=== PATIENT | female | born 1930 | race Caucasian/White ===

== ENCOUNTER 2016-08-12 20:27 | Emergency (ER) | payer MEDICARE ==
[~2016-08-12] VITALS: Ht 152.4 cm; Wt 49.9 kg
--- NOTE | 2016-08-12 22:10 | ED General ---
General Chief Complaint: Skin/Wound Problems Stated Complaint: FLU SYMPTOMS Nursing Triage Note: FROM HOME PER EMS. PT C/O PAIN TO BUTTOCKS. UPON ARRIVAL PT IS INCONTINENT OF STOOL, BUTTOCKS RED, MACERATED. DENIES N/V. Nursing Sepsis Screen: No Definite Risk Source of Information: Patient Exam Limitations: No Limitations History of Present Illness Time Seen by Provider: 21:56 Initial Comments here by EMS with report of pain to the area of the buttocks. Patient had stool covering skin on arrival. This was cleaned up by nursing. She is improved with respect to pain afterwards. 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 Patient is on only aspirin and otherwise no significant medications. Does have history of blood clot which apparently resulted in the amputation. Patient does report the right leg has some pain and she knows she needs to exercise it. There is swelling and redness of the leg noted in reported. The son was also report reporting that the patient has had cough and he has recently had a bout of pneumonia and was worried about that with her. She has no local physician. She has no physician at all currently. Timing/Duration: 1-3 Hours (pain to buttocks), 3-4 Days (cough) Severity: Moderate Associated Systoms: No Chest Pain, Cough, No Fever/Chills, No Nausea/Vomiting, No Shortness of Air, No Weakness Allergies and Home Medications Allergies Coded Allergies: No Known Drug Allergies (Unverified , 08/12/16) Home Medications Cephalexin 500 Mg Tablet, 500 MG PO TID, #21 Ref 0 Prescribed by: REBECA HUTCHINS on 08/13/16 0133 Menthol/Zinc Oxide 3.5 Gm Oint.pack, 3.5 GM TP TID, #50 Ref 1 Prescribed by: REBECA HUTCHINS on 08/13/16 0133 Constitutional: see HPI, No chills, No fever EENTM: no symptoms reported Respiratory: see HPI, cough, No short of breath Cardiovascular: No chest pain, edema Gastrointestinal: no symptoms reported, No nausea, No vomiting Genitourinary: no symptoms reported, No dysuria, No pain Musculoskeletal: No back pain, muscle pain Skin: change in color, lesions Psychiatric/Neurological: No Symptoms Reported Hematologic/Lymphatic: No Symptoms Reported All Other Systems Reviewed Negative Unless Noted: Yes Past Vmuhaaq-Incazx-Oncrvc Hx Patient Social History Alcohol Use: Denies Use Recreational Drug Use: No Smoking Status: Never a Smoker Recent Foreign Travel: No Contact w/Someone Who Travel: No Recent Infectious Disease Expo: No Recent Hopitalizations: No Seasonal Allergies Seasonal Allergies: No Surgeries HX Surgeries: Yes (LEFT AKA) Respiratory Hx Respiratory Disorders: No Cardiovascular Hx Cardiac Disorders: Yes Cardiac Disorders: Peripheral Vascular Neurological Hx Neurological Disorders: No Reproductive System Hx Reproductive Disorders: No Sexually Transmitted Disease: No Genitourinary Hx Genitourinary Disorders: No Gastrointestinal Hx Gastrointestinal Disorders: No Musculoskeletal Musculoskeletal Disorders: Amputee Endocrine Hx Endocrine Disorders: No HEENT HX ENT Disorders: No Cancer Hx Cancer: No Psychosocial Hx Psychiatric Problems: No Integumentary HX Skin/Integumentary Disorder: No Blood Transfusions Adverse Reaction to a Blood Tr: No Reviewed Nursing Assessment Reviewed/Agree w Nursing PMH: Yes Family Medical History Significant Family History: No Pertinent Family Hx Physical Exam-Suspected Sepsis Physical Exam Vital Signs Vital Sign - Last 12Hours 08/12/16 20:40 Temp 99.0 Pulse 73 Resp 19 B/P (MAP) 136/86 Pulse Ox 96 Capillary Refill : Less Than 3 Seconds Blood Pressure Mean: 103 General Appearance: No Apparent Distress, WD/WN HEENT: PERRL/EOMI, Pharynx Normal Neck: Non Tender, Supple Respiratory: No Respiratory Distress, Crackles (mild at bases bilaterally) Cardiovascular: Regular Rate, Rhythm, No Murmur Gastrointestinal: Non Tender, Soft Back: Normal Inspection, No CVA Tenderness, No Vertebral Tenderness Extremity: Calf Tenderness, Pedal Edema (right lower extremity2+), Other (left [id number] amputation) Neurologic/Psychiatric: Alert, Oriented x3 Skin: ulcerations (stage I/to skin breakdown to the skin folds along the posterior gluteal folds at the legs bilaterally with erythema over the buttocks. ), other (erythema to the right lower extremity above the ankle to the level of the mid tibia anteriorly that is warm and edematous.) Focused Exam Lactic Acid Level Laboratory Tests Test 08/12/16 22:20 Lactic Acid Level 1.24 MMOL/L (0.50-2.00) Progress/Results/Core Measures Suspected Sepsis Recent Fever Within 48 Hours: Yes Infection Criteria Present: Suspected New Infection New/Unexplained Altered Menta: No Sepsis Screen: No Definite Risk Sepsis Diagnosis: SIRS Temperature:99.0 Pulse: 73 Respiratory Rate: 19 Laboratory Tests 08/12/16 22:20: White Blood Count 7.9 Blood Pressure 136 /86 Mean: 103 Laboratory Tests 08/12/16 22:20: Creatinine 0.87, INR Comment 1.0, Platelet Count 447H, Total Bilirubin 0.3 Results/Orders Lab Results Laboratory Tests Test 08/12/16 22:20 08/12/16 23:45 Range/Units White Blood Count 7.9 4.3-11.0 10^3/uL Red Blood Count 4.19 L 4.35-5.85 10^6/uL Hemoglobin 9.1 L 11.5-16.0 G/DL Hematocrit 30 L 35-52 % Mean Corpuscular Volume 71 L 80-99 FL Mean Corpuscular Hemoglobin 22 L 25-34 PG Mean Corpuscular Hemoglobin Concent 31 L 32-36 G/DL Red Cell Distribution Width 17.2 H 10.0-14.5 % Platelet Count 447 H 130-400 10^3/uL Mean Platelet Volume 10.3 7.4-10.4 FL Neutrophils (%) (Auto) 83 H 42-75 % Lymphocytes (%) (Auto) 9 L 12-44 % Monocytes (%) (Auto) 7 0-12 % Eosinophils (%) (Auto) 0 0-10 % Basophils (%) (Auto) 1 0-10 % Neutrophils # (Auto) 6.6 1.8-7.8 X 10^3 Lymphocytes # (Auto) 0.7 L 1.0-4.0 X 10^3 Monocytes # (Auto) 0.6 0.0-1.0 X 10^3 Eosinophils # (Auto) 0.0 0.0-0.3 10^3/uL Basophils # (Auto) 0.0 0.0-0.1 10^3/uL Prothrombin Time 13.0 12.2-14.7 SEC INR Comment 1.0 0.8-1.4 Activated Partial Thromboplast Time 28 24-35 SEC Sodium Level 138 135-145 MMOL/L Potassium Level 4.4 3.6-5.0 MMOL/L Chloride Level 104 98-107 MMOL/L Carbon Dioxide Level 23 21-32 MMOL/L Anion Gap 11 5-14 MMOL/L Blood Urea Nitrogen 17 7-18 MG/DL Creatinine 0.87 0.60-1.30 MG/DL Estimat Glomerular Filtration Rate > 60 BUN/Creatinine Ratio 20 Glucose Level 119 H 70-105 MG/DL Lactic Acid Level 1.24 0.50-2.00 MMOL/L Calcium Level 9.1 8.5-10.1 MG/DL Total Bilirubin 0.3 0.1-1.0 MG/DL Aspartate Amino Transf (AST/SGOT) 11 5-34 U/L Alanine Aminotransferase (ALT/SGPT) 9 0-55 U/L Alkaline Phosphatase 75 40-136 U/L Total Protein 6.5 6.4-8.2 G/DL Albumin 3.4 3.2-4.5 G/DL Urine Color YELLOW Urine Clarity CLEAR Urine pH 5 5-9 Urine Specific [place] 1.020 1.016-1.022 Urine Protein NEGATIVE NEGATIVE Urine Glucose (UA) NEGATIVE NEGATIVE Urine Ketones NEGATIVE NEGATIVE Urine Nitrite NEGATIVE NEGATIVE Urine Bilirubin NEGATIVE NEGATIVE Urine Urobilinogen NORMAL NORMAL MG/DL Urine Leukocyte Esterase 1+ H NEGATIVE Urine RBC (Auto) 2+ H NEGATIVE Urine RBC 5-10 H /HPF Urine WBC 0-2 /HPF Urine Squamous Epithelial Cells 5-10 /HPF Urine Crystals NONE /LPF Urine Bacteria NEGATIVE /HPF Urine Casts NONE /LPF Urine Mucus NEGATIVE /LPF Urine Culture Indicated NO My Orders Orders - REBECA HUTCHINS MD Cbc With Automated Diff (08/12/16 22:06) Comprehensive Metabolic Panel (08/12/16 22:06) Lactic Acid Analyzer (08/12/16 22:06) Blood Culture (08/12/16 22:06) Sputum Culture (08/12/16 22:06) Ua Culture If Indicated (08/12/16 22:06) Protime With Inr (08/12/16 22:06) Partial Thromboplastin Time (08/12/16 22:06) Chest 1 View, Ap/Pa Only (08/12/16 22:06) O2 (08/12/16 22:06) Saline Lock/Iv-Start (08/12/16 22:06) Vital Signs Adult Sepsis Patie Q1HR (08/12/16 22:06) Remove Rings In Anticipation O (08/12/16 22:06) Us Venous Lower Ext Rt (08/12/16 22:33) Cephalexin Capsule (Keflex Capsule) (08/13/16 01:34) Vital Signs/I&O Vital Sign - Last 12Hours 08/12/16 08/12/16 20:40 22:38 Temp 99.0 99.0 Pulse 73 73 Resp 19 19 B/P (MAP) 136/86 136/86 Pulse Ox 96 96 Capillary Refill : Less Than 3 Seconds Blood Pressure Mean: 103 Progress Note : Progress Note seen and evaluated. IV, labs, chest x-ray, UA, blood cultures and lactic acid ordered. Ultrasound right lower extremity due to history of blood clot to the left lower extremity requiring amputation. Patient not on anticoagulants. Patient is mostly bedridden.0030: Ultrasound is negative. UA pending. Otherwise labs are negative at this point. 0100: UA is also negative for infection. We will get barrier cream in place to the buttocks. Patient will need follow-up with a local physician. They currently do not have a local physician and are seeking physician care. We talked about several different physicians and they are interested in Dr. Darryn Redding. I will give his information to the patient and family and send copy of chart to him in case they do call for follow-up. The son indicated he would call in the morning. Patient would benefit from home health due to wounds but will need primary care follow-up first. The son was very interested in assistance and so is the patient. Diagnostic Imaging Diagonstic Imaging: Xray Plain Films/CT/US/NM/MRI: chest Comments no acute findings Reviewed: Reviewed by Me Diagonstic Imaging: Ultrasound Plain Films/CT/US/NM/MRI: leg Comments no DVT per statrad read Reviewed: Reviewed Night [facility] Study Departure Impression Impression: Primary Impression: Skin ulcer of buttock, limited to breakdown of skin Disposition: 01 HOME, SELF-CARE Condition: Improved Departure-Patient Inst. Decision time for Depature: 01:25 Referrals: LYNN GARY MD (PCP/Family) Primary Care Physician DARRYN REDDING MD Patient Instructions: Wound Care (DC) Add. Discharge Instructions: All discharge instructions reviewed with patient and/or family. Voiced understanding. use skin barrier cream as directed. Take antibiotics as directed. Follow-up with a doctor of your choice or the one listed this week for recheck and further evaluation and for evaluation for home health referral. Return for worse pain, fever, vomiting, weakness, breathing problems, increasing skin breakdown or other concerns as needed. It is very important that the skin remains clean and dry. Scripts Menthol/Zinc Oxide (Calmoseptine Ointment Packet) 3.5 Gm Oint.pack 3.5 GM TP TID, #50 PACKET 1 Refill Prov: REBECA HUTCHINS MD 08/13/16 Cephalexin (Cephalexin) 500 Mg Tablet 500 MG PO TID, #21 TAB 0 Refills Prov: REBECA HUTCHINS MD 08/13/16 Copy Copies To 1: DARRYN REDDING MD, TIMOTHY D MD August 12, 2016 22:10
[2016-08-12 22:37] LABS: BASOPHILS % (AUTO) 1 % (0-10); EOSINOPHILS % (AUTO) 0 % (0-10); LYMPHOCYTES # (AUTO) 0.7 X 10^3 (1.0-4.0); LYMPHOCYTES % (AUTO) 9 % (12-44); MEAN CORPUSCULAR HEMOGLOBIN 22 PG (25-34); MEAN CORPUSCULAR HGB CONC 31 G/DL (32-36); MEAN CORPUSCULAR VOLUME 71 FL (80-99); MEAN PLATELET VOLUME 10.3 FL (7.4-10.4); MONOCYTES # (AUTO) 0.6 X 10^3 (0.0-1.0); MONOCYTES % (AUTO) 7 % (0-12); NEUTROPHILS # (AUTO) 6.6 X 10^3 (1.8-7.8); NEUTROPHILS % (AUTO) 83 % (42-75); PLATELET COUNT 447 10^3/uL (130-400); RED BLOOD COUNT 4.19 10^6/uL (4.35-5.85); RED CELL DISTRIBUTION WIDTH 17.2 % (10.0-14.5); WHITE BLOOD COUNT 7.9 10^3/uL (4.3-11.0)
[2016-08-12 23:04] LABS: ALANINE AMINOTRANSFERASE 9 U/L (0-55); ALBUMIN 3.4 G/DL (3.2-4.5); ANION GAP 11 MMOL/L (5-14); ASPARTATE AMINO TRANSFERASE 11 U/L (5-34); BILIRUBIN,TOTAL 0.3 MG/DL (0.1-1.0); BLOOD UREA NITROGEN 17 MG/DL (7-18); BUN/CREATININE RATIO 20; CALCIUM 9.1 MG/DL (8.5-10.1); CARBON DIOXIDE 23 MMOL/L (21-32); CHLORIDE 104 MMOL/L (98-107); CREATININE SERUM 0.87 MG/DL (0.60-1.30); GFR ESTIMATED > 60; GLUCOSE 119 MG/DL (70-105); POTASSIUM 4.4 MMOL/L (3.6-5.0); SODIUM 138 MMOL/L (135-145); TOTAL PROTEIN 6.5 G/DL (6.4-8.2)
[2016-08-12 23:58] LABS: BILIRUBIN,URINE NEGATIVE (NEGATIVE); KETONES,URINE NEGATIVE (NEGATIVE); LEUKOCYTE ESTERASE ,URINE 1+ (NEGATIVE); NITRITE,URINE NEGATIVE (NEGATIVE); PH,URINE 5 (5-9); PROTEIN,URINE NEGATIVE (NEGATIVE); UROBILINOGEN,URINE NORMAL (NORMAL)
[2016-08-13 00:08] LABS: WBC,URINE 0-2 /HPF
[2016-08-13] MEDS ORDERED: MENT3.5O TP (01:33)
[2016-08-13] MEDS ORDERED: CEPH500T PO (01:33)
[2016-08-13] MEDS ORDERED: CEPHALEXIN 250 MG (KEFLEX) CAP PO STA (01:34)
[2016-08-13 01:43] VITALS: BP 136/86
--- NOTE | 2016-08-13 07:10 | Diagnostic Imaging Report ---
INDICATION: Leg swelling and redness. TECHNIQUE: Grayscale with color-flow and Doppler waveform evaluation of the right lower extremity deep venous system. CORRELATION STUDY: None FINDINGS: Color and grayscale sonographic images demonstrate no intraluminal defect within the visualized portion of the common femoral, superficial femoral and/or popliteal veins to suggest thrombus formation. These vessels demonstrate normal response to compression and augmentation. However, the venous structures below the level of the knee could not be visualized secondary to edema. IMPRESSION: 1. Negative for deep venous thrombosis of the right leg. Dictated by: Dictated on workstation # [id number]
--- NOTE | 2016-08-13 07:36 | Diagnostic Imaging Report ---
INDICATION: Lower extremity edema. TECHNIQUE: Single view chest 10:37 PM. CORRELATION STUDY: 06/09/2007 FINDINGS: Poststernotomy and coronary artery bypass changes. Heart size, mediastinum and vascular overall generally stable. Increased density in the left lung base medially. Remaining lung bran with senescent type change but clear. IMPRESSION: 1. Poststernotomy changes. 2. Density at the left lung base. This may reflective of perhaps hiatal hernia. Infiltrate, atelectasis would be considered less likely but not excluded. Dictated by: Dictated on workstation # [id number]
== END 2016-08-13 01:37 | disposition home or self-care (01) ==
LOC: EDUNIT# 20:27 → ER 20:30
DX: L89.311 Pressure ulcer of right buttock, stage 1 (principal); L89.321 Pressure ulcer of left buttock, stage 1; R60.0 Localized edema; I73.9 Peripheral vascular disease, unspecified; Z89.612 Acquired absence of left leg above knee
CPT/HCPCS: 36415; 71010; 80053; 81000; 83605; 85025; 85610; 85730; 87040; 87077